=== PATIENT | female | born 1995 | race Caucasian/White ===

== ENCOUNTER 2018-06-05 07:58 | Inpatient (IN) | payer SELFPAY ==
[2018-06-05 08:14] VITALS: BMI 33.8
[2018-06-05] MEDS ORDERED: Lactated Ringer's 1,000 ML IV ONE (08:14)
[2018-06-05] MEDS ORDERED: Lactated Ringer's 1,000 ML IV SCH ×2 (08:15→19:29)
[2018-06-05] MEDS ORDERED: Oxytocin 30 UNIT 30 UNITS/500 ML BAG IV ONE (08:21)
[2018-06-05] MEDS ORDERED: OXYTOCIN/0.9 % NS 20 UNIT/1,000 ML BAG IV ONE ×2 (08:45)
[2018-06-05] MEDS ORDERED: ceFAZolin 2 GM in Sodium Chloride 0.9% 100 ML IVPB ONE (08:45)
[2018-06-05 08:49] LABS: BASO % 0.3 % (0.0-2.0); EOS # 0.1 K/uL (0.0-0.7); EOS % 0.9 % (0.0-4.0); HEMOGLOBIN 10.5 g/dL (12.0-16.0); LYMPH # 3.3 K/uL (1.0-4.3); LYMPH % 21.9 % (20.0-40.0); MEAN CELL VOLUME 75.2 fl (81.0-99.0); MEAN CORPUSCULAR HEMOGLOBIN 24.1 pg (27.0-31.0); MEAN PLATELET VOLUME 7.8 fl (7.2-11.7); MONO # 1.1 K/uL (0.0-0.8); MONO % 7.1 % (0.0-10.0); NEUT # 10.5 K/uL (1.8-7.0); NEUT % 69.8 % (50.0-75.0); RBC 4.35 Mil/uL (3.80-5.20); RED CELL DISTRIBUTION WIDTH 17.1 % (11.5-14.5); WHITE BLOOD COUNT 15.1 K/uL (4.8-10.8)
[2018-06-05 09:14] LABS: BARBITURATES, UR NEGATIVE (NEGATIVE); BENZODIAZEPINES, UR NEGATIVE (NEGATIVE); OPIATES, UR NEGATIVE (NEGATIVE); PHENCYCLIDINE, UR NEGATIVE (NEGATIVE)
[2018-06-05] MEDS ORDERED: Morphine 1 mg/ml preservative-free Inj(Duramorph) ONE (09:32)
[2018-06-05] MEDS ORDERED: ePHEDrine 50 mg/ml Inj ONE (10:23)
[2018-06-05] MEDS ORDERED: Oxycodone/Acetaminophen 5/325 mg Tab PO PRN ×3 (10:25→19:29)
--- NOTE | 2018-06-05 10:37 | OBDS ---
DELIVERY PERSONNEL Delivery Doctor: DR. Ortiz Scrub Nurse: Ness Winn Prop And Scenery Maker: Maribel Kan RN Anesthesiologist: Dr. Mcwilliams MATERNAL INFORMATION Delivery Anesthesia: Spinal Maternal Complications: None Provider Comments: primary section oblipue lie head was not engaged vaccum applied for few secods , head delivered and baby was handed to college specialist after cord was double clamped and cut. LABOR SUMMARY [facility]: 06/10/2018 00:00 No. Babies in Womb: 1 Attempted: No Labor Anesthesia: Spinal LABOR INFORMATION Reason for Induction: Not Applicable Oxytocin: N/A Group B Beta Strep: Not Done Steroids Given: None Reason Steroids Not Administered: Not Applicable MEMBRANES Membranes Rupture Method: Artificial STAGES OF LABOR Stage 3 hrs: 0 Stage 3 min: 1 CSECTION DELIVERY Primary Indication: Other Other Primary Indication: oblique lie CSection Urgency: Elective CSection Incidence: Primary Labor: No Labor Elective: Elective CSection Incision: Lower Uterine Transverse BABY A INFORMATION Delivery Date/Time: 06/05/2018 10:01 Method of Delivery: Born in Route : No : N/A Forceps: N/A Vacuum Extraction: Successful Shoulder Dystocia : No SHOULDER DYSTOCIA BABY A Delivery Date/Time: 06/05/2018 10:01 PRESENTATION/POSITION BABY A Presentation: Cephalic Cephalic Presentation: Vertex Breech Presentation: N/A PLACENTA INFORMATION BABY A Placenta Delivery Time : 06/05/2018 10:02 Placenta Method of Delivery: Spontaneous Placenta Status: Delivered SCORES BABY A Heart Rate 1 min: >100 bpm Resp Effort 1 min: Good Cry Reflex Irritability 1 min: Cough or Sneeze or Pulls Away Muscle Tone 1 min: Active Motion Color 1 min: Body [place], Extremities Blue Resuscitation Effort 1 min: Tactile Stimulation SCORE 1 MIN: 9 Heart Rate 5 min: >100 bpm Resp Effort 5 min: Good Cry Reflex Irritability 5 min: Cough or Sneeze or Pulls Away Muscle Tone 5 min: Active Motion Color 5 min: Body [place], Extremities Blue SCORE 5 MIN: 9 INFORMATION BABY A Gestational Age at Delivery: 39.0 Gestational Status: Term Infant Outcome : Liveborn Condition : Stable Sex: Female IDENTIFICATION/MEDS BABY A ID Band Number: [id number] ID Band Location: Left Leg; Left Arm WEIGHT/LENGTH BABY A Infant Birthweight (gms): 3405 Weight (lb): 7 Infant Weight (oz): 8 CORD INFORMATION BABY A No. Cord Vessels: 3 Nuchal Cord : Around Neck x1, Loose Cord Blood Taken: N/A Infant Suction: None ASSESSMENT BABY A Complications: None Physical Findings at Delivery: Within Normal Limits Infant Respirations: Appears Normal Agile Test Lead/ALS Called : No Care By: Sage Crowder Transferred To: Remains with Mother
[2018-06-05] MEDS ORDERED: DiphenhydrAMINE 50 mg/ml Inj IVP PRN ×2 (10:39→19:29)
--- NOTE | 2018-06-05 10:39 | OBDS ---
DELIVERY PERSONNEL Delivery Doctor: DR. Ortiz Scrub Nurse: Ness Winn Cardiac Exercise Physiologist: Maribel Kan RN Anesthesiologist: Dr. Mcwilliams MATERNAL INFORMATION Delivery Anesthesia: Spinal Maternal Complications: None Provider Comments: primary section oblipue lie head was not engaged vaccum applied for few secods , head delivered and baby was handed to cook room supervisor after cord was double clamped and cut. LABOR SUMMARY [facility]: 06/10/2018 00:00 No. Babies in Womb: 1 Attempted: No Labor Anesthesia: Spinal LABOR INFORMATION Reason for Induction: Not Applicable Oxytocin: N/A Group B Beta Strep: Not Done Steroids Given: None Reason Steroids Not Administered: Not Applicable MEMBRANES Membranes Rupture Method: Artificial STAGES OF LABOR Stage 3 hrs: 0 Stage 3 min: 1 CSECTION DELIVERY Primary Indication: Other Other Primary Indication: oblique lie CSection Urgency: Elective CSection Incidence: Primary Labor: No Labor Elective: Elective CSection Incision: Lower Uterine Transverse BABY A INFORMATION Delivery Date/Time: 06/05/2018 10:01 Method of Delivery: Born in Route : No : N/A Forceps: N/A Vacuum Extraction: Successful Shoulder Dystocia : No SHOULDER DYSTOCIA BABY A Delivery Date/Time: 06/05/2018 10:01 PRESENTATION/POSITION BABY A Presentation: Other Cephalic Presentation: Vertex Breech Presentation: N/A PLACENTA INFORMATION BABY A Placenta Delivery Time : 06/05/2018 10:02 Placenta Method of Delivery: Spontaneous Placenta Status: Delivered SCORES BABY A Heart Rate 1 min: >100 bpm Resp Effort 1 min: Good Cry Reflex Irritability 1 min: Cough or Sneeze or Pulls Away Muscle Tone 1 min: Active Motion Color 1 min: Body [place], Extremities Blue Resuscitation Effort 1 min: Tactile Stimulation SCORE 1 MIN: 9 Heart Rate 5 min: >100 bpm Resp Effort 5 min: Good Cry Reflex Irritability 5 min: Cough or Sneeze or Pulls Away Muscle Tone 5 min: Active Motion Color 5 min: Body [place], Extremities Blue SCORE 5 MIN: 9 INFORMATION BABY A Gestational Age at Delivery: 39.0 Gestational Status: Term Outcome : Liveborn Condition : Stable Infant Sex: Female IDENTIFICATION/MEDS BABY A ID Band Number: [id number] ID Band Location: Left Leg; Left Arm WEIGHT/LENGTH BABY A Infant Birthweight (gms): 3405 Infant Weight (lb): 7 Infant Weight (oz): 8 CORD INFORMATION BABY A No. Cord Vessels: 3 Nuchal Cord : Around Neck x1, Loose Cord Blood Taken: N/A Infant Suction: None ASSESSMENT BABY A Complications: None Physical Findings at Delivery: Within Normal Limits Infant Respirations: Appears Normal Superintendent Tests/ALS Called : No Care By: Sage Crowder Transferred To: Remains with Mother
[2018-06-06 07:32] LABS: HEMOGLOBIN 9.7 g/dL (12.0-16.0); MEAN CORPUSCULAR HEMOGLOBIN 23.9 pg (27.0-31.0); MEAN CORPUSCULAR HGB CONC 31.8 g/dL (33.0-37.0); RBC 4.08 Mil/uL (3.80-5.20); RED CELL DISTRIBUTION WIDTH 17.2 % (11.5-14.5); WHITE BLOOD COUNT 17.3 K/uL (4.8-10.8)
[2018-06-06] MEDS ORDERED: Multivitamin With Minerals Tab PO SCH (09:00)
[2018-06-06] MEDS ORDERED: Influenza Vaccine (5 YR UP)/PF 60 MCG/0.5 ML SYR IM ONE (09:00)
[2018-06-06] MEDS: Oxycodone/Acetaminophen 5/325 mg Tab PO PRN ×3 (09:52→22:38)
[2018-06-06] MEDS: Multivitamin With Minerals Tab PO SCH (12:05)
[2018-06-07] MEDS: Oxycodone/Acetaminophen 5/325 mg Tab PO PRN ×4 (05:38→21:03)
[2018-06-07] MEDS: Multivitamin With Minerals Tab PO SCH (09:50)
[2018-06-08] MEDS: Oxycodone/Acetaminophen 5/325 mg Tab PO PRN ×2 (04:46→09:10)
[2018-06-08] MEDS: Multivitamin With Minerals Tab PO SCH (09:09)
[2018-06-08] MEDS ORDERED: Measles, Mumps, and Rubella 0.5 ML VIAL SC ONE (12:45)
[2018-06-08 21:06] VITALS: BP 118/73; PULSE 84; RESP 20; TEMP 98.3; O2SAT 99
== END 2018-06-08 15:43 | disposition home or self-care (01) | DRG 788 ==
LOC: H.L&D 08:14 → H.OB/GYN 12:45
PROVIDERS: ADMIT Obstetrics & Gynecology; ATTEND Obstetrics & Gynecology
PROC: 10D00Z1 Extraction of Products of Conception, Low, Open Approach (ICD-10-PCS; principal; 2018-06-05)
PROC: 4A1HXCZ Monitoring of Products of Conception, Cardiac Rate, External Approach (ICD-10-PCS; 2018-06-05)
DX: O32.2XX0 Maternal care for transverse and oblique lie, not applicable or unspecified (principal); O69.81X0 Labor and delivery complicated by cord around neck, without compression, not applicable or unspecified; Z37.0 Single live birth; Z3A.39 39 weeks gestation of pregnancy